=== PATIENT | female | born 1990 | race Caucasian/White ===

== ENCOUNTER → 2020-12-15 10:23 | Outpatient (CLI) | payer BC ==
[2015-01-18 09:07] VITALS: BMI 23.6
[~2020-12-15 10:23] MED LIST: ASCORBIC ACID500 MG PO; CLARITIN 10 MG10 MG PO; EZFE 200200 MG PO; MAGNESIUM OXID500 MG PO; MULTIPLE VITAMI1 TA1 PO; POTASSIUM99 M1 PO; VITAMIN D31000 UNIT PO; YASMIN 28 TABLE1 TAB PO; ZINC50 MG PO; ZYRTEC-D T1 TAB.SR . PO; [UNRECOGNIZED DRUG - OTHER]
== END | disposition home or self-care (01) ==
LOC: D.CT 10:00
PROVIDERS: ATTEND Family Medicine
DX: R10.9 Unspecified abdominal pain (principal)